=== PATIENT | male | born 1965 | race Caucasian/White ===

== ENCOUNTER 2023-01-11 14:27 | Emergency (ER) | payer OTHER ==
[2023-01-11 14:37] VITALS: TEMP 98.6; BMI 29.0
[2023-01-11] MEDS ORDERED: SODIUM CHLORIDE 0.9% 500 ML INFUS.BAG IV ONE ×2 (14:55→15:08)
[2023-01-11] MEDS ORDERED: ACETAMINOPHEN 1000 MG/100 ML BAG IVPB ONE (14:55)
[2023-01-11] MEDS ORDERED: LORazepam 2 MG/ML SDV VIAL IVPUSH ONE (15:06)
[2023-01-11 16:08] LABS: BASO % 0.6 % (0-2.0); EOS % 0.5 % (0-4.5); HEMATOCRIT 47.8 % (35.4-49); LYMPH % 14.8 % (8-40); MCH 29.9 pg (25.7-33.7); MCHC 33.4 g/dl (32.0-35.9); MEAN CELL VOLUME 89.4 fl (80-96); MEAN PLT VOLUME 8.6 fl (7.5-11.1); MONO % 4.3 % (3.8-10.2); NEUT % 79.8 % (42.8-82.8); PLATELET COUNT 206 10^3/uL (134-434); RBC 5.35 M/mm3 (4.00-5.60); RDW 14.1 % (11.9-15.9); WHITE BLOOD COUNT 7.3 K/mm3 (4.0-10.0)
[2023-01-11 16:15] LABS: INR 0.96 (0.83-1.09); PROTHROMBIN TIME (PATIENT) 11.1 SEC (9.7-13.0)
[2023-01-11 16:18] LABS: ACTIVATED PTT 30.1 SECONDS (25.2-36.5)
[2023-01-11 16:46] LABS: CHLORIDE 105 mmol/L (98-107); SODIUM 139 mmol/L (136-145)
[2023-01-11 16:48] LABS: ALBUMIN 3.9 g/dl (3.4-5.0); CALCIUM 8.5 mg/dL (8.5-10.1)
[2023-01-11 16:49] LABS: ANION GAP 8 MMOL/L (8-16); BLOOD UREA NITROGEN 20.8 mg/dL (7-18); CO2 26 mmol/L (21-32); GLUCOSE,RANDOM 198 mg/dL (74-106)
[2023-01-11 16:51] LABS: SGPT/ALT 83 U/L (13-61)
[2023-01-11 16:52] LABS: CREATININE 1.4 mg/dL (0.55-1.3); SGOT/AST 32 U/L (15-37)
[2023-01-11 16:53] LABS: BILIRUBIN,TOTAL 0.5 mg/dL (0.2-1); TOT PROT 7.2 g/dl (6.4-8.2)
[2023-01-11 16:54] LABS: ALK PHOS 64 U/L (45-117)
[2023-01-11 20:14] LABS: CALCIUM 8.7 mg/dL (8.5-10.1)
[2023-01-11 20:15] LABS: BLOOD UREA NITROGEN 20.3 mg/dL (7-18)
[2023-01-11 20:18] LABS: CREATININE 1.2 mg/dL (0.55-1.3)
[2023-01-11 20:28] VITALS: RESP 16
[2023-01-11 20:44] VITALS: BP 108/80; PULSE 82
== END 2023-01-11 21:15 | disposition home or self-care (01) ==
LOC: JER 14:27
PROC: 3E033NZ Introduction of Analgesics, Hypnotics, Sedatives into Peripheral Vein, Percutaneous Approach (ICD-10-PCS; principal; 2023-01-11)
PROC: 3E033GC Introduction of Other Therapeutic Substance into Peripheral Vein, Percutaneous Approach (ICD-10-PCS; 2023-01-11)
DX: R07.9 Chest pain, unspecified (principal); R00.0 Tachycardia, unspecified; F12.90 Cannabis use, unspecified, uncomplicated
CPT/HCPCS: 36415; 71045-TC-FY; 80048; 80053; 80307; 82550; 84484; 85025; 85379; 85610; 85730; 93005; 93010; 99285-25